=== PATIENT | female | born 1980 | race African-American/Black ===

== ENCOUNTER 2019-01-15 15:31 | Emergency (ER) | payer OTHER ==
[~2019-01-15] VITALS: Ht 160 cm; Wt 70.3 kg
[~2019-01-15 15:31] MED LIST: INDERAL20 MG GT
[2019-01-15 15:35] VITALS: BP 133/89
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
[2019-01-15] MEDS ORDERED: Bacitracin Oint UD TOPIC ONE (16:00)
[2019-01-15] MEDS ORDERED: HYDROcodone/Acetamin 5/325 tab ORAL ONE (16:00)
--- NOTE | 2019-01-15 16:00 | NUR ---
ED Nurse Note: field artillery targeting technician on bedside.
--- NOTE | 2019-01-15 16:13 | NUR ---
ED Nurse Note: PT MEDICATED AND TOLERATED WELL
--- NOTE | 2019-01-15 16:18 | Diagnostic Imaging Report ---
Indication: Left wrist pain Findings: 3 views of the left wrist were obtained. No acute fractures, malalignment, erosions or periostitis are identified. Soft tissues are unremarkable. Impression: No acute findings.
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
[2019-01-15] MEDS ORDERED: TYLENOL EXTRA500 MG ORAL (16:41)
[2019-01-15] MEDS ORDERED: ROBAXIN-750750 MG PO (16:41)
[2019-01-15] MEDS ORDERED: SILVADENE20 GM TP (16:41)
[2019-01-15 16:45] VITALS: BP 128/78
--- NOTE | 2019-01-15 16:45 | NUR ---
ER DISCHARGE NOTE: Patient is cleared to be discharged per ERMD, pt is aox4, on room air, with stable vital signs. pt was given dc and prescription instructions, pt was able to verbalize understanding, pt id band removed without complications. pt is able to ambulate with steady gait. pt took all belongings.
== END 2019-01-15 16:45 | disposition home or self-care (01) ==
LOC: EDBD 15:31 → EMR 15:41
DX: S63.502A Unspecified sprain of left wrist, initial encounter (principal); T23.072A Burn of unspecified degree of left wrist, initial encounter; T22.012A Burn of unspecified degree of left forearm, initial encounter; T22.011A Burn of unspecified degree of right forearm, initial encounter; M62.838 Other muscle spasm; V43.52XA Car driver injured in collision with other type car in traffic accident, initial encounter; Y92.410 Unspecified street and highway as the place of occurrence of the external cause; Z91.018 Allergy to other foods
CPT/HCPCS: 99283